=== PATIENT | male | born 1970 | race Caucasian/White ===

== ENCOUNTER 2018-08-26 09:13 | Emergency (ER) | payer MEDICAID ==
[~2018-08-26] VITALS: Ht 190.5 cm; Wt 129.3 kg
[2018-08-26 09:34] VITALS: BP_SYST 122
[2018-08-26] MEDS ORDERED: KETOROLAC TROMETHAMINE 60 MG/2 ML VIAL IM ONE ×2 (10:00→11:15)
[2018-08-26 10:10] LABS: BASOPHILS # (AUTO) 0.1 K/uL (0.0-0.2); BASOPHILS % (AUTO) 0.5 % (0.0-2.0); EOSINOPHILS % (AUTO) 0.1 % (0.0-4.0); HEMATOCRIT 46.7 % (36-54); HEMOGLOBIN 15.3 g/dL (14.0-18.0); LYMPHOCYTES # (AUTO) 1.1 K/uL (1.0-5.5); MEAN CORPUSCULAR HEMOGLOBIN 33 pg (27-31); MEAN CORPUSCULAR HGB CONC 33 % (32-36); MEAN CORPUSCULAR VOLUME 100 fL (79.0-98.0); MONOCYTES # (AUTO) 1.1 K/uL (0.0-1.0); MONOCYTES % (AUTO) 7.8 % (1.7-9.3); NEUTROPHILS # (AUTO) 11.8 K/uL (1.8-7.7); NEUTROPHILS % (AUTO) 83.6 % (40.0-70.0); PLATELET COUNT (AUTO) 229 K/uL (130-430); RED BLOOD CELL COUNT(AUTO) 4.66 MIL/uL (4.2-6.2); RED CELL DISTRIBUTION WIDTH 16.6 % (9.0-15.0); WHITE BLOOD COUNT (AUTO) 14.1 K/uL (4.8-10.8)
[2018-08-26 10:26] LABS: CALCIUM 8.7 mg/dL (8.4-11.0); CREATININE 1.71 mg/dL (0.55-1.30); POTASSIUM 4.6 mmol/L (3.5-5.1)
[2018-08-26 10:31] LABS: ALBUMIN 3.1 g/dL (3.4-4.8); TOTAL BILIRUBIN 2.2 mg/dL (0.0-1.0)
[2018-08-26] MEDS ORDERED: NACL 0.9% 1,000 ML IV ONE ×2 (11:30→12:30)
[2018-08-26 13:40] VITALS: BP_SYST 102
== END 2018-08-26 13:40 | disposition home or self-care (01) ==
LOC: SED 09:13
DX: N20.0 Calculus of kidney (principal); I10 Essential (primary) hypertension
CPT/HCPCS: 36415; 74176; 80053; 83690; 84484; 85025; 96372; 99284; G0482; J1885; J7030; 93005

== ENCOUNTER 2018-08-29 02:45 | Emergency (ER) | payer MEDICAID ==
[~2018-08-29] VITALS: Ht 190.5 cm; Wt 131.5 kg
[2018-08-29 02:51] VITALS: BP_SYST 113
--- NOTE | 2018-08-29 02:55 | NUR ---
Patient to ER bed 5 for evaluation.
--- NOTE | 2018-08-29 03:00 | NUR ---
Patient to ER via triage for evaluation of LLQ abd pain, along with constipation and hematuria. Patient seen at [facility] on 08/26/18 and was diagnosed with kidney stone. Patient is awake, alert and oriented in no acute distress, vital signs stable, respirations even and unlabored, skin warm and dry to touch. Patient able to ambulate without difficulty with slow, stead gait to bed 5. Awaiting evaluation by ER MD, will continue to observe and assess.
--- NOTE | 2018-08-29 03:04 | NUR ---
ER at bedside examining patient.
[2018-08-29] MEDS ORDERED: NACL 0.9% 1,000 ML IV ONE (03:13)
[2018-08-29] MEDS ORDERED: NA PHOS,M-B/NA PHOS,DI-BA 118 ML (FLEET ENEMA) RC ONE (03:15)
--- NOTE | 2018-08-29 03:34 | NUR ---
# 20 gauge angiocath placed to left hand. Use of asceptic technique. Opsite placed over site. Blood return noted. Blood for lab drawn from site. Flushed with 10 cc of normal saline. No evidence of infiltration noted. Patient tolerated well.
[2018-08-29 03:36] LABS: BILIRUBIN,URINE NEGATIVE (NEGATIVE); BLOOD, URINE NEGATIVE (NEGATIVE); CLARITY/URINE CLEAR (CLEAR); COLOR,URINE YELLOW (YELLOW); GLUCOSE,URINE NEGATIVE (NEGATIVE); KETONES,URINE NEGATIVE (NEGATIVE); LEUKOCYTE ESTERASE ,URINE NEGATIVE (NEGATIVE); NITRITE, URINE NEGATIVE (NEGATIVE); PROTEIN URINE TRACE (NEGATIVE); UROBILINOGEN,URINE 0.2 (0.2-1.0)
--- NOTE | 2018-08-29 03:37 | NUR ---
Patient transported to radiology via gurney, accompanied by rad staff.
[2018-08-29 03:42] LABS: BASOPHILS % (AUTO) 0.3 % (0.0-2.0); EOSINOPHILS # (AUTO) 0.2 K/uL (0.0-0.4); EOSINOPHILS % (AUTO) 1.7 % (0.0-4.0); HEMATOCRIT 37.7 % (36-54); HEMOGLOBIN 12.5 g/dL (14.0-18.0); LYMPHOCYTES % (AUTO) 9.6 % (20.5-51.5); MEAN CORPUSCULAR HEMOGLOBIN 34 pg (27-31); MEAN CORPUSCULAR HGB CONC 33 % (32-36); MEAN CORPUSCULAR VOLUME 101 fL (79.0-98.0); MONOCYTES # (AUTO) 1.1 K/uL (0.0-1.0); MONOCYTES % (AUTO) 10.2 % (1.7-9.3); NEUTROPHILS # (AUTO) 8.2 K/uL (1.8-7.7); NEUTROPHILS % (AUTO) 78.2 % (40.0-70.0); PLATELET COUNT (AUTO) 135 K/uL (130-430); RED BLOOD CELL COUNT(AUTO) 3.73 MIL/uL (4.2-6.2); RED CELL DISTRIBUTION WIDTH 15.4 % (9.0-15.0); WHITE BLOOD COUNT (AUTO) 10.5 K/uL (4.8-10.8)
[2018-08-29] MEDS ORDERED: KETOROLAC TROMETHAMINE 30 MG VIAL IVP ONE (03:45)
[2018-08-29 03:56] LABS: CALCIUM 8.5 mg/dL (8.4-11.0); CREATININE 1.8 mg/dL (0.55-1.30); POTASSIUM 4.6 mmol/L (3.5-5.1)
[2018-08-29 04:00] LABS: ALBUMIN 2.7 g/dL (3.4-4.8); TOTAL BILIRUBIN 1.2 mg/dL (0.0-1.0)
--- NOTE | 2018-08-29 04:03 | NUR ---
Pt is resting in bed. Pt was advised enema was ordered and refused stating "I can just do that at home, I'm okay with just the pain medication". ER MD is aware.
[2018-08-29 04:49] VITALS: BP_SYST 113
--- NOTE | 2018-08-29 04:51 | NUR ---
Patient given written and verbal discharge instructions and verbalizes understanding. ER MD discussed with patient the results and treatment provided. Patient in stable condition. ID arm band removed. IV catheter removed intact and dressing applied, no active bleeding. Rx of Shelbina and Ibuprofen given. Patient educated on pain management and to follow up with PMD. Pain Scale 0/10. Opportunity for questions provided and answered. Medication side effect fact sheet provided.
== END 2018-08-29 04:51 | disposition home or self-care (01) ==
LOC: SED 02:45
DX: K56.7 Ileus, unspecified (principal); N28.9 Disorder of kidney and ureter, unspecified; K59.00 Constipation, unspecified; D64.9 Anemia, unspecified; I10 Essential (primary) hypertension; E78.5 Hyperlipidemia, unspecified; Z87.442 Personal history of urinary calculi
CPT/HCPCS: 36415; 74018; 80053; 81003; 85025; 96374; 99284; J1885; J7030

== ENCOUNTER 2018-10-24 04:55 | Emergency (ER) | payer MEDICAID ==
[~2018-10-24] VITALS: Ht 190.5 cm; Wt 127.0 kg
[2018-10-24 04:55] VITALS: BP_SYST 118
--- NOTE | 2018-10-24 05:15 | NUR ---
Pt ambulatory to bed 5 for evaluation
--- NOTE | 2018-10-24 05:42 | NUR ---
ER at bedside examining patient.
--- NOTE | 2018-10-24 05:45 | NUR ---
Pt came to the ED for a rash. Reports pt is an alcoholic reports that his last drink was at 1800 last night. Reports that he is shaking. Rash started about 8- 9 days ago. Upon observation, rash is on his abdomen, back and hands. Rash is painful and pain is 10/10. Reported he took Lexapro around when the rash appeared. Pt has been attempting to vomit however, nothing is in the emesis bag. Denies chest pain, SOB or fever. No other complaints/injuries noted. Will cont. to monitor.
[2018-10-24] MEDS ORDERED: KETOROLAC TROMETHAMINE 60 MG/2 ML VIAL IM ONE (06:30)
[2018-10-24] MEDS ORDERED: LORazepam 2 MG/ML VIAL (FOR ER USE) IM ONE (06:30)
--- NOTE | 2018-10-24 06:33 | NUR ---
spoke to mishel, case work aide from pt's insurance, updated CM on pt's status. stated that we would receive a call back after speaking with the medical transcription editor.
--- NOTE | 2018-10-24 07:18 | NUR ---
DR GAN AT BEDSIDE EXAMINING PATIENT.
[2018-10-24 07:20] LABS: CALCIUM 8.7 mg/dL (8.4-11.0); CREATININE 1.2 mg/dL (0.55-1.30); POTASSIUM 4.1 mmol/L (3.5-5.1)
[2018-10-24 07:25] LABS: ALBUMIN 3.4 g/dL (3.4-4.8); TOTAL BILIRUBIN 1.1 mg/dL (0.0-1.0)
[2018-10-24 07:41] LABS: BASOPHILS % (AUTO) 0.2 % (0.0-2.0); EOSINOPHILS % (AUTO) 0.1 % (0.0-4.0); HEMATOCRIT 51.5 % (36-54); HEMOGLOBIN 17.5 g/dL (14.0-18.0); LYMPHOCYTES # (AUTO) 0.7 K/uL (1.0-5.5); LYMPHOCYTES % (AUTO) 6.5 % (20.5-51.5); MEAN CORPUSCULAR HEMOGLOBIN 35 pg (27-31); MEAN CORPUSCULAR HGB CONC 34 % (32-36); MEAN CORPUSCULAR VOLUME 103 fL (79.0-98.0); MONOCYTES # (AUTO) 0.6 K/uL (0.0-1.0); MONOCYTES % (AUTO) 5.2 % (1.7-9.3); NEUTROPHILS # (AUTO) 10.1 K/uL (1.8-7.7); PLATELET COUNT (AUTO) 217 K/uL (130-430); RED CELL DISTRIBUTION WIDTH 15.5 % (9.0-15.0); WHITE BLOOD COUNT (AUTO) 11.5 K/uL (4.8-10.8)
[2018-10-24] MEDS ORDERED: NACL 0.9% 1,000 ML IV ONE (07:45)
[2018-10-24] MEDS ORDERED: LORazepam 2 MG/ML VIAL (FOR ER USE) IVP ONE (07:45)
--- NOTE | 2018-10-24 07:55 | NUR ---
# 20 gauge angiocath placed to right hand. Use of asceptic technique. Opsite placed over site. Blood return noted. Flushed with 10 cc of normal saline. No evidence of infiltration noted. Patient tolerated well.
--- NOTE | 2018-10-24 08:34 | NUR ---
PATIENT STATES HE IS FEELING BETTER AFTER ATIVAN. PATIENT WAS WORRIED HE WOULD START GOING INTO ALCOHOL WITHDRAWL BECAUSE HE USUALLY TAKES SHOT OF MOONSHINE AT 0800.
--- NOTE | 2018-10-24 08:45 | NUR ---
DR GAN AT BEDSIDE TALKING TO PATIENT.
[2018-10-24 08:55] VITALS: BP_SYST 135
--- NOTE | 2018-10-24 08:55 | NUR ---
Patient given written and verbal discharge instructions and verbalizes understanding. ER MD discussed with patient the results and treatment provided. Patient in stable condition. ID arm band removed. IV catheter removed intact and dressing applied, no active bleeding. Rx of BECLOMETHASONE given. Patient educated on pain management and to follow up with PMD. Pain Scale 0/10. Opportunity for questions provided and answered. Medication side effect fact sheet provided.
== END 2018-10-24 08:55 | disposition home or self-care (01) ==
LOC: SED 04:55
DX: E86.0 Dehydration (principal); L40.9 Psoriasis, unspecified; F10.20 Alcohol dependence, uncomplicated
CPT/HCPCS: 36415; 80053; 85025; 93005; 96361; 96372; 96374; 99284; J1885; J2060; J7030

== ENCOUNTER 2018-10-31 04:47 | Inpatient (IN) | payer MEDICAID ==
[2018-10-31] VITALS (7 sets, daily range): BP systolic 122–146
[~2018-10-31] VITALS: Ht 190.5 cm; Wt 131.5 kg
[2018-10-31] MEDS ORDERED: LORazepam 2 MG/ML VIAL (FOR ER USE) IVP ONE ×3 (05:00→10:00)
[2018-10-31] MEDS ORDERED: NACL 0.9% 2,000 ML IV ONE (05:00)
[2018-10-31 05:34] LABS: BASOPHILS # (AUTO) 0.1 K/uL (0.0-0.2); BASOPHILS % (AUTO) 0.8 % (0.0-2.0); EOSINOPHILS # (AUTO) 0.1 K/uL (0.0-0.4); EOSINOPHILS % (AUTO) 0.7 % (0.0-4.0); HEMATOCRIT 43.5 % (36-54); HEMOGLOBIN 14.7 g/dL (14.0-18.0); LYMPHOCYTES # (AUTO) 0.9 K/uL (1.0-5.5); LYMPHOCYTES % (AUTO) 11.8 % (20.5-51.5); MEAN CORPUSCULAR HEMOGLOBIN 34 pg (27-31); MEAN CORPUSCULAR HGB CONC 34 % (32-36); MEAN CORPUSCULAR VOLUME 102 fL (79.0-98.0); MONOCYTES # (AUTO) 0.5 K/uL (0.0-1.0); MONOCYTES % (AUTO) 5.8 % (1.7-9.3); NEUTROPHILS # (AUTO) 6.4 K/uL (1.8-7.7); NEUTROPHILS % (AUTO) 80.9 % (40.0-70.0); PLATELET COUNT (AUTO) 134 K/uL (130-430); RED BLOOD CELL COUNT(AUTO) 4.28 MIL/uL (4.2-6.2); WHITE BLOOD COUNT (AUTO) 7.9 K/uL (4.8-10.8)
[2018-10-31 05:47] LABS: ANION GAP 12 (5-15); CALCIUM 8.5 mg/dL (8.4-11.0); CHLORIDE 102 mmol/L (98-107); CREATININE 0.93 mg/dL (0.55-1.30); GLUCOSE 160 mg/dL (70-99); POTASSIUM 3.4 mmol/L (3.5-5.1); SODIUM SERUM 135 mmol/L (136-145); UREA NITROGEN, BLOOD 13 mg/dL (8-21)
[2018-10-31 05:53] LABS: ALANINE AMINOTRANSFERASE 120 U/L (12-78); ALBUMIN 3.2 g/dL (3.4-4.8); ASPARTATE AMINOTRANSFERASE 124 U/L (10-37); TOTAL BILIRUBIN 1.1 mg/dL (0.0-1.0)
[2018-10-31 05:55] LABS: ALCOHOL, BLOOD < 3 mg/dL (<10); GFR AFRICAN AMERICAN 111 mL/min (>90)
[2018-10-31] MEDS ORDERED: POTASSIUM CHLORIDE 20 MEQ/PKT PACKET PO ONE (09:45)
[2018-10-31] MEDS ORDERED: DIPHENHYDRAMINE INJ 50 MG/ML VIAL IVP ONE (10:00)
[2018-10-31] MEDS: FOLIC ACID 1 MG, THIAMINE HCL 100 MG, MAGNESIUM SULFATE 1 GM, MVI 10 ML in NACL 0.9% 1,... IV SCH (12:53)
[2018-10-31] MEDS: LORazepam 2 MG/ML VIAL IVP PRN (16:36)
[2018-10-31] MEDS ORDERED: LevALBUTEROL HCL 1.25 MG/0.5 ML *CONC.* VIAL.NEB (XOPENEX CONC.) INH PRN (17:15)
[2018-10-31] MEDS: HYDROmorphone 2 MG/ML VIAL IVP PRN (18:16)
[2018-10-31] MEDS: LevALBUTEROL HCL 1.25 MG/0.5 ML *CONC.* VIAL.NEB (XOPENEX CONC.) INH SCH (20:23)
[2018-10-31] MEDS: chlordiazePOXIDE HCL 25 MG CAPSULE PO PRN (21:37)
[2018-10-31] MEDS: PANTOPRAZOLE SODIUM 40 MG/VIAL (PROTONIX) IVP SCH (21:37)
[2018-10-31] MEDS: ENOXAPARIN SODIUM 40 MG/0.4 ML SYRINGE SUBCUT SCH (21:38)
[2018-11-01] MEDS: LevALBUTEROL HCL 1.25 MG/0.5 ML *CONC.* VIAL.NEB (XOPENEX CONC.) INH SCH ×4 (01:29→22:11)
[2018-11-01] MEDS: chlordiazePOXIDE HCL 25 MG CAPSULE PO PRN ×3 (05:20→19:54)
[2018-11-01 06:00] LABS: BASOPHILS % (AUTO) 0.4 % (0.0-2.0); EOSINOPHILS # (AUTO) 0.2 K/uL (0.0-0.4); HEMATOCRIT 38.8 % (36-54); HEMOGLOBIN 13.1 g/dL (14.0-18.0); LYMPHOCYTES # (AUTO) 0.6 K/uL (1.0-5.5); LYMPHOCYTES % (AUTO) 14.5 % (20.5-51.5); MEAN CORPUSCULAR HEMOGLOBIN 35 pg (27-31); MEAN CORPUSCULAR HGB CONC 34 % (32-36); MEAN CORPUSCULAR VOLUME 103 fL (79.0-98.0); MONOCYTES # (AUTO) 0.3 K/uL (0.0-1.0); MONOCYTES % (AUTO) 6.9 % (1.7-9.3); NEUTROPHILS # (AUTO) 3.2 K/uL (1.8-7.7); NEUTROPHILS % (AUTO) 74.2 % (40.0-70.0); PLATELET COUNT (AUTO) 110 K/uL (130-430); RED BLOOD CELL COUNT(AUTO) 3.78 MIL/uL (4.2-6.2); RED CELL DISTRIBUTION WIDTH 14.6 % (9.0-15.0); WHITE BLOOD COUNT (AUTO) 4.3 K/uL (4.8-10.8)
[2018-11-01 06:27] LABS: CALCIUM 8.2 mg/dL (8.4-11.0); CREATININE 0.82 mg/dL (0.55-1.30); PHOSPHORUS 2.8 mg/dL (2.7-4.5); POTASSIUM 3.6 mmol/L (3.5-5.1)
[2018-11-01 07:50] VITALS: BP_SYST 172
[2018-11-01 08:26] VITALS: BP_SYST 154
[2018-11-01] MEDS: PANTOPRAZOLE SODIUM 40 MG/VIAL (PROTONIX) IVP SCH ×2 (08:40→21:50)
[2018-11-01] MEDS: HYDROmorphone 2 MG/ML VIAL IVP PRN ×2 (08:45→21:50)
[2018-11-01] MEDS: FOLIC ACID 1 MG, THIAMINE HCL 100 MG, MAGNESIUM SULFATE 1 GM, MVI 10 ML in NACL 0.9% 1,... IV SCH (09:42)
[2018-11-01 12:45] VITALS: BP_SYST 128; BP_SYST 96
[2018-11-01 16:22] VITALS: BP_SYST 134
[2018-11-01] MEDS ORDERED: cloNIDine HCL 0.1 MG TABLET PO PRN (16:45)
[2018-11-01 20:11] VITALS: BP_SYST 138
[2018-11-01] MEDS: ENOXAPARIN SODIUM 40 MG/0.4 ML SYRINGE SUBCUT SCH (22:05)
[2018-11-02 00:15] VITALS: BP_SYST 137
[2018-11-02] MEDS: LevALBUTEROL HCL 1.25 MG/0.5 ML *CONC.* VIAL.NEB (XOPENEX CONC.) INH SCH ×4 (02:12→19:16)
[2018-11-02 05:36] VITALS: BP_SYST 141
[2018-11-02] MEDS: chlordiazePOXIDE HCL 25 MG CAPSULE PO PRN ×3 (05:37→17:25)
[2018-11-02] MEDS: HYDROmorphone 2 MG/ML VIAL IVP PRN ×2 (05:42→11:43)
[2018-11-02 08:00] VITALS: BP_SYST 131
[2018-11-02] MEDS: PANTOPRAZOLE SODIUM 40 MG/VIAL (PROTONIX) IVP SCH ×2 (09:48→20:37)
[2018-11-02] MEDS: FOLIC ACID 1 MG, THIAMINE HCL 100 MG, MAGNESIUM SULFATE 1 GM, MVI 10 ML in NACL 0.9% 1,... IV SCH (09:48)
[2018-11-02 11:57] VITALS: BP_SYST 116
[2018-11-02] MEDS ORDERED: HYDROCORTISONE 2.5%, 30 GM TOPICAL CREAM TP PRN (15:30)
[2018-11-02 16:33] VITALS: BP_SYST 132
[2018-11-02] MEDS: LORazepam 2 MG/ML VIAL IVP PRN ×2 (16:36→20:46)
[2018-11-02] MEDS ORDERED: GABAPENTIN 300 MG CAPSULE PO SCH (17:15)
[2018-11-02 20:00] VITALS: BP_SYST 136
[2018-11-02] MEDS: MIRTAZAPINE 15 MG TABLET PO SCH (20:37)
[2018-11-02] MEDS: ENOXAPARIN SODIUM 40 MG/0.4 ML SYRINGE SUBCUT SCH (20:37)
[2018-11-02] MEDS: ZOLPIDEM TARTRATE 5 MG TABLET PO PRN (22:30)
[2018-11-03] VITALS (7 sets, daily range): BP systolic 128–142
[2018-11-03] MEDS: LevALBUTEROL HCL 1.25 MG/0.5 ML *CONC.* VIAL.NEB (XOPENEX CONC.) INH SCH ×4 (01:10→20:06)
[2018-11-03 06:26] LABS: BASOPHILS % (AUTO) 0.3 % (0.0-2.0); EOSINOPHILS # (AUTO) 0.2 K/uL (0.0-0.4); EOSINOPHILS % (AUTO) 3.2 % (0.0-4.0); HEMATOCRIT 37.7 % (36-54); HEMOGLOBIN 12.8 g/dL (14.0-18.0); LYMPHOCYTES # (AUTO) 0.7 K/uL (1.0-5.5); LYMPHOCYTES % (AUTO) 15.6 % (20.5-51.5); MEAN CORPUSCULAR HEMOGLOBIN 35 pg (27-31); MEAN CORPUSCULAR HGB CONC 34 % (32-36); MEAN CORPUSCULAR VOLUME 102 fL (79.0-98.0); MONOCYTES # (AUTO) 0.5 K/uL (0.0-1.0); MONOCYTES % (AUTO) 10.4 % (1.7-9.3); NEUTROPHILS # (AUTO) 3.3 K/uL (1.8-7.7); NEUTROPHILS % (AUTO) 70.5 % (40.0-70.0); PLATELET COUNT (AUTO) 131 K/uL (130-430); RED BLOOD CELL COUNT(AUTO) 3.69 MIL/uL (4.2-6.2); RED CELL DISTRIBUTION WIDTH 14.6 % (9.0-15.0); WHITE BLOOD COUNT (AUTO) 4.7 K/uL (4.8-10.8)
[2018-11-03 06:49] LABS: ALBUMIN 2.7 g/dL (3.4-4.8); CALCIUM 8.5 mg/dL (8.4-11.0); CREATININE 0.88 mg/dL (0.55-1.30); POTASSIUM 3.4 mmol/L (3.5-5.1); TOTAL BILIRUBIN 0.6 mg/dL (0.0-1.0)
[2018-11-03] MEDS: GABAPENTIN 300 MG CAPSULE PO SCH ×3 (08:41→21:02)
[2018-11-03] MEDS: PANTOPRAZOLE SODIUM 40 MG/VIAL (PROTONIX) IVP SCH ×2 (08:41→21:02)
[2018-11-03] MEDS: FOLIC ACID 1 MG, THIAMINE HCL 100 MG, MAGNESIUM SULFATE 1 GM, MVI 10 ML in NACL 0.9% 1,... IV SCH (08:45)
[2018-11-03] MEDS: HYDROmorphone 2 MG/ML VIAL IVP PRN ×3 (08:46→21:27)
[2018-11-03] MEDS: chlordiazePOXIDE HCL 25 MG CAPSULE PO PRN ×2 (11:53→21:03)
[2018-11-03] MEDS: LORazepam 2 MG/ML VIAL IVP PRN (18:30)
[2018-11-03] MEDS: ZOLPIDEM TARTRATE 5 MG TABLET PO PRN (21:03)
[2018-11-03] MEDS: MIRTAZAPINE 15 MG TABLET PO SCH (21:03)
[2018-11-03] MEDS: ENOXAPARIN SODIUM 40 MG/0.4 ML SYRINGE SUBCUT SCH (21:05)
[2018-11-04] MEDS: LevALBUTEROL HCL 1.25 MG/0.5 ML *CONC.* VIAL.NEB (XOPENEX CONC.) INH SCH ×4 (01:00→19:33)
[2018-11-04 06:58] LABS: BASOPHILS % (AUTO) 0.3 % (0.0-2.0); EOSINOPHILS # (AUTO) 0.2 K/uL (0.0-0.4); EOSINOPHILS % (AUTO) 3.2 % (0.0-4.0); HEMATOCRIT 37.8 % (36-54); HEMOGLOBIN 12.8 g/dL (14.0-18.0); LYMPHOCYTES % (AUTO) 19.6 % (20.5-51.5); MEAN CORPUSCULAR HEMOGLOBIN 35 pg (27-31); MEAN CORPUSCULAR HGB CONC 34 % (32-36); MEAN CORPUSCULAR VOLUME 103 fL (79.0-98.0); MONOCYTES # (AUTO) 0.7 K/uL (0.0-1.0); MONOCYTES % (AUTO) 12.3 % (1.7-9.3); NEUTROPHILS # (AUTO) 3.4 K/uL (1.8-7.7); NEUTROPHILS % (AUTO) 64.6 % (40.0-70.0); PLATELET COUNT (AUTO) 154 K/uL (130-430); RED BLOOD CELL COUNT(AUTO) 3.68 MIL/uL (4.2-6.2); RED CELL DISTRIBUTION WIDTH 14.5 % (9.0-15.0); WHITE BLOOD COUNT (AUTO) 5.3 K/uL (4.8-10.8)
[2018-11-04] MEDS: HYDROmorphone 2 MG/ML VIAL IVP PRN ×3 (06:58→21:24)
[2018-11-04 07:22] LABS: ALBUMIN 2.7 g/dL (3.4-4.8); CALCIUM 8.4 mg/dL (8.4-11.0); CREATININE 0.94 mg/dL (0.55-1.30); POTASSIUM 3.4 mmol/L (3.5-5.1); TOTAL BILIRUBIN 0.8 mg/dL (0.0-1.0)
[2018-11-04 07:50] VITALS: BP_SYST 118
[2018-11-04] MEDS: GABAPENTIN 300 MG CAPSULE PO SCH ×3 (09:18→21:28)
[2018-11-04] MEDS: PANTOPRAZOLE SODIUM 40 MG/VIAL (PROTONIX) IVP SCH ×2 (09:18→21:27)
[2018-11-04] MEDS: FOLIC ACID 1 MG, THIAMINE HCL 100 MG, MAGNESIUM SULFATE 1 GM, MVI 10 ML in NACL 0.9% 1,... IV SCH (09:19)
[2018-11-04 12:23] VITALS: BP_SYST 144
[2018-11-04] MEDS ORDERED: DEXAMETHASONE SOD PHOSPHATE 10 MG/ML VIAL IM ONE (15:00)
[2018-11-04] MEDS ORDERED: POTASSIUM CHLORIDE 20 MEQ TAB.PRT.SR PO ONE (15:00)
[2018-11-04] MEDS ORDERED: COLCHICINE 0.6 MG TABLET PO ONE (15:00)
[2018-11-04 16:42] VITALS: BP_SYST 146
[2018-11-04 19:00] VITALS: BP_SYST 133
[2018-11-04 20:00] VITALS: BP_SYST 133
[2018-11-04] MEDS: COLCHICINE 0.6 MG TABLET PO SCH (21:27)
[2018-11-04] MEDS: MIRTAZAPINE 15 MG TABLET PO SCH (21:28)
[2018-11-04] MEDS: ZOLPIDEM TARTRATE 5 MG TABLET PO PRN (21:29)
[2018-11-04] MEDS: chlordiazePOXIDE HCL 25 MG CAPSULE PO PRN (21:29)
[2018-11-04] MEDS: ENOXAPARIN SODIUM 40 MG/0.4 ML SYRINGE SUBCUT SCH (21:38)
[2018-11-05 00:26] VITALS: BP_SYST 106
[2018-11-05] MEDS: LevALBUTEROL HCL 1.25 MG/0.5 ML *CONC.* VIAL.NEB (XOPENEX CONC.) INH SCH ×3 (00:48→13:00)
[2018-11-05 07:58] VITALS: BP_SYST 114
[2018-11-05] MEDS: GABAPENTIN 300 MG CAPSULE PO SCH ×2 (08:45→15:33)
[2018-11-05] MEDS: PANTOPRAZOLE SODIUM 40 MG/VIAL (PROTONIX) IVP SCH (08:45)
[2018-11-05] MEDS: COLCHICINE 0.6 MG TABLET PO SCH (08:45)
[2018-11-05] MEDS: FOLIC ACID 1 MG, THIAMINE HCL 100 MG, MAGNESIUM SULFATE 1 GM, MVI 10 ML in NACL 0.9% 1,... IV SCH (09:21)
[2018-11-05] MEDS ORDERED: DEXAMETHASONE SOD PHOSPHATE 10 MG/ML VIAL IM ONE (12:00)
[2018-11-05] MEDS ORDERED: TRIAMCINOLONE ACETONIDE 0.025% 80 GM CREAM.GM. TP ONE (12:30)
[2018-11-05 12:44] VITALS: BP_SYST 100
[2018-11-05 16:52] VITALS: BP_SYST 117
[2018-11-05 18:04] VITALS: BP_SYST 145
[2018-11-05] MEDS ORDERED: ALLO300T2 PO (18:10)
[2018-11-05] MEDS ORDERED: COLC0.6T67 PO (18:10)
[2018-11-05] MEDS ORDERED: THIA50TA10 PO (18:11)
[2018-11-05] MEDS ORDERED: FOLI-43 PO (18:11)
[2018-11-05] MEDS ORDERED: NEU300 PO (18:11)
[2018-11-05] MEDS ORDERED: REM15 PO (18:12)
[2018-11-05] MEDS ORDERED: PRO40 PO (18:12)
[2018-11-05] MEDS ORDERED: LIB25 PO (18:13)
[2018-11-05] MEDS ORDERED: KENALOG 0.1% TP (18:14)
[2018-11-05] MEDS ORDERED: TRIAMCINOLONE ACETONIDE 0.025% 15 GM CREAM.GM. TP SCH (21:00)
[2018-11-06] MEDS ORDERED: ALLOPURINOL 300 MG TABLET (ZYLOPRIM) PO SCH (09:00)
== END 2018-11-05 19:00 | disposition home or self-care (01) | DRG 280 ==
LOC: SED 04:47 → STU 09:38 → SMU 11-03 14:58
PROVIDERS: ADMIT Family Medicine; ATTEND Family Medicine
PROC: 5A09357 Assistance with Respiratory Ventilation, Less than 24 Consecutive Hours, Continuous Positive Airway Pressure (ICD-10-PCS; principal; 2018-10-31)
PROC: 5A09357 Assistance with Respiratory Ventilation, Less than 24 Consecutive Hours, Continuous Positive Airway Pressure (ICD-10-PCS; 2018-11-01)
PROC: 5A09357 Assistance with Respiratory Ventilation, Less than 24 Consecutive Hours, Continuous Positive Airway Pressure (ICD-10-PCS; 2018-11-02)
PROC: 5A09357 Assistance with Respiratory Ventilation, Less than 24 Consecutive Hours, Continuous Positive Airway Pressure (ICD-10-PCS; 2018-11-03)
PROC: 5A09357 Assistance with Respiratory Ventilation, Less than 24 Consecutive Hours, Continuous Positive Airway Pressure (ICD-10-PCS; 2018-11-04)
DX: K70.9 Alcoholic liver disease, unspecified (principal); F33.9 Major depressive disorder, recurrent, unspecified; F10.239 Alcohol dependence with withdrawal, unspecified; F41.9 Anxiety disorder, unspecified; F17.200 Nicotine dependence, unspecified, uncomplicated; M10.9 Gout, unspecified; L40.9 Psoriasis, unspecified; I10 Essential (primary) hypertension
CPT/HCPCS: 36415; 71045; 73560-TC; 76700-TC; 80048; 80053; 82140-TC; 82150-TC; 82550-TC; 83690-TC; 83735-TC; 83880; 84100-TC; 84484; 84550-TC; 85025; 85651-TC; 87081; 93005; 94640; 94660; 94760; 96361; 96374; 96375; 99285; C9113; G0378; G0482; J1100; J1170; J1200; J1650; J2060; J3411; J3475; J3490; J7030; J7612